=== PATIENT | male | born 1970 | race Caucasian/White ===

== ENCOUNTER 2017-01-06 12:16 | Emergency (ER) | payer OTHER ==
[~2017-01-06] VITALS: Ht 188 cm; Wt 120.2 kg
[~2017-01-06 12:16] MED LIST: AUGMENTIN 875-1 EACH PO; PERCOCET 5-3251 EACH PO
--- NOTE | 2017-01-06 12:53 | ED PSYCHIATRIC COMPLAINT ---
History of Present Illness General Chief Complaint: Psychiatric Related Complaint Stated Complaint: PT REQUESTING PSY EVAL Source: patient Exam Limitations: no limitations Vital Signs & Intake/Output Vital Signs & Intake/Output Vital Signs Date Time Temp Pulse Resp B/P B/P Pulse O2 O2 Flow FiO2 Mean Ox Delivery Rate 01/06 1940 97.1 84 18 134/85 98 Room Air 01/06 1441 98.0 88 18 138/88 97 Room Air 01/06 1229 97.9 82 15 149/99 100 Room Air Allergies Coded Allergies: No Known Allergies (01/06/17) Reconcile Medications Atorvastatin Calcium 10 MG TABLET 1 TAB PO QPM CHOLESTEROL (Reported) Escitalopram Oxalate 10 MG TABLET 1 TAB PO DAILY MENTAL HEALTH (Reported) Triage Note: PT TO ED FOR INCREASED WHIPPET USAGE AND QUESTIONABLE DELUSIONS. PT TO ED WITH BROTHER, PT ENDORESES USING WHIPPETS "APPROXIMATELY 100-200 TIMES A DAY". Triage Nurses Notes Reviewed? yes Onset: Gradual Duration: worse persistent since (2 WEEKS) Timing: recent history Severity: severe HPI: Patient is a 46-year-old male with history of hypertension presenting to the emergency Department chief complaint of "I abuse whippets". Patient sees his drug abuse counselor 1-2 times a week and they thought it would be a good idea that he come in and get evaluated here in the emergency department. Patient denying any suicidal or homicidal ideation. Denies any anxiety or depression. Patient reports that he's been abusing whippets approximately 10 times a day for the past week or 2. No nausea or vomiting. He feels anxious when he does not use IT. (NAIN HICKMAN) Past History Travel History Traveled to [place] past 21 day No Medical History Any Pertinent Medical History? 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 No (NAIN HICKMAN) Review of Systems Review of Systems Constitutional: Reports: no symptoms. Comments Review of systems: See HPI, All other systems negative. Constitutional, no chills fever or weight loss HEENT: No visual changes no sore throat no congestion Cardiovascular: No chest pain ,palpitation , orthopnea or ankle swelling Skin, no jaundice no rashes Respiratory: No dyspnea cough sputum or hemoptysis GI: No nausea no vomiting : No dysuria No hematuria Muscle skeletal: no back pain, no neck pain, Neurologic: No numbness no confusion NO SOSA Psych: No INCREASED stress anxiety or depression,. Heme/endocrine: No bruising no bleeding no polyuria or polydipsia Immunology: No splenectomy or history of AIDS (NAIN HICKMAN) Physical Exam Physical Exam General Appearance: well developed/nourished, no apparent distress, alert, awake , comfortable Neurological/Psychiatric: oriented x 3 Comments: Well-developed well-nourished person in no acute distress HEENT: Pupils equally round and reactive to light and accommodation. Nose is atraumatic. Neck: Normal inspection Back: Nontender Cardiovascular: Regular rate and rhythms no murmurs rubs or gallops, normal JVP Respiratory: Chest nontender. No respiratory distress.breath sounds clear to auscultation bilaterally Extremity: No edema Neuro: Alert oriented x3, motor sensory normal Skin: No appreciable rash on exposed skin, skin is warm and dry. Psych: Mood and affect is normal, memory and judgment is normal. SAD PERSONS Done? patient not suicidal (NAIN HICKMAN) Progress Differential Diagnosis: POLYSUBSTANCE ABUSE, ADDICTIVE PERSONALITY, GENERALIZED ANXIETY DISORDER Plan of Care: Orders Procedure Date/time Status URINE DRUG SCREEN FOR ER ONLY 01/06 1253 Complete URINALYSIS 01/06 1253 Complete TSH REFLEX 01/06 1253 Complete COMPREHENSIVE METABOLIC PANEL 01/06 1253 Complete CBC WITHOUT DIFFERENTIAL 01/06 1253 Complete ED CRISIS PSYCH CONSULT 01/06 1253 Active Laboratory Tests 01/06/17 1424: Urine Opiates Screen < 100.00, Methadone Screen 43, Barbiturate Screen < 60, Ur Phencyclidine Scrn < 6.00, Amphetamines Screen < 100, U Benzodiazepines Scrn > 800.0 H, Urine Cocaine Screen 73, Urine Cannabis Screen 31.90, Urine Color YEL, Urine Clarity CLEAR, Urine pH 6.0, Ur Specific [place] 1.020, Urine Protein 30 H, Urine Ketones NEG, Urine Nitrite NEG, Urine Bilirubin NEG, Urine Urobilinogen 0.2, Ur Leukocyte Esterase NEG, Ur Microscopic SEDIMENT EXAMINED, Urine RBC RARE , Ur Epithelial Cells RARE, Urine Hemoglobin NEG, Urine Glucose NEG 01/06/17 1414: Anion Gap 11, Estimated GFR > 60, BUN/Creatinine Ratio 14.5, Glucose 105 H, Calcium 10.1, Total Bilirubin 0.9, AST 17, ALT 57, Alkaline Phosphatase 70, Total Protein 7.4, Albumin 4.8, Globulin 2.6, Albumin/Globulin Ratio 1.8, TSH & T3 &Free T4 Intrp 0.579, CBC w Diff NO MAN DIFF REQ, RBC 4.87, MCV 88.7, MCH 30.9, RDW 16.2 H, MPV 8.3, Gran % 66.9, Lymphocytes % 26.6, Monocytes % 6.0, Eosinophils % 0.4, Basophils % 0.1, Absolute Granulocytes 3.5, Absolute Lymphocytes 1.4, Absolute Monocytes 0.3, Absolute Eosinophils 0, Absolute Basophils 0, PUBS MCHC 34.8 Comments: Patient cleared by crisis. He will follow up with IOP. Patient nontoxic. (NAIN HICKMAN) Departure Departure Time of Disposition: 1713 Disposition: HOME OR SELF CARE Condition: Stable Clinical Impression Primary Impression: Drug abuse Referrals: UMAIR WILSON,SHAKIRA Vela (PCP/Family) Additional Instructions: Follow-up with recommendations made by crisis. Return for worsening symptoms or concerns. Departure Forms: Customer Survey General Discharge Information (NAIN HICKMAN) PA/[employer] Co-Sign Statement Statement: ED Attending supervision documentation- [] I saw and evaluated the patient. I have also reviewed all the pertinent lab results and diagnostic results. I agree with the findings and the plan of care as documented in the PA's/[employer]'s documentation. [X] I have reviewed the ED Record and agree with the PA's/[employer]'s documentation. [] Additions or exceptions (if any) to the PAs/[employer]'s note and plan are summarized below: [] (MARVIN WILSON,GLORIA Davison)
--- NOTE | 2017-01-06 14:12 | ED PSY CRISIS COLLATERAL NOTE ---
See Addendum Collateral Note Collateral Note Family/Inform/Cesia Contacts: 1. 01/06/17 1300: and brother present in the hospital, and interviewed in the family room. , Brandy, (H), (C) Brother, Ollie, (C) The patient was brought to his therapist, Blank Melton, today by his and his brother, who snet them to the ED for evaluation of his drug abuse which is interferring with his family life and livelihood. The patient also has altered mentation when he is under the influence of the drug, nitrous oxide. The patient has been abusing 'Whippets,' or nitrous oxide cartridges by inhalation, estimated to be 100-200 daily. This began in the summer of 2014, at about the time he cut his drinking down from a six pack with 3 shots of liquor nightly to 1-2 drinks socially. He had been drinking heavily since his parents were 5 years ago. As he cut down on alcohol use, he began to increase his use of the nitrous oxide. Brandy found out about the nitrous abuse on 2014. Ollie reports that the patient has been psychotic, saying while under the influence of the drug, that using it is his purpose in life, and he cannot understand why everyone is not prescribed nitrous oxide. He has been neglecting work by going to the smoke shop to buy the cartidges, and sitting in his car inhaling them. He loses his sense of time; 20 minutes to him is actually 3-4 hours. His nutrition has deteriorated, and his PCP, Dr. Alex Bone, has precribed vitamin B-12 injections. 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 After the divorce, the mother left, and the father, now 65 and with some health issues, stopped working at the store, too. 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 The patient has stated that he feels his mother walked out on him, too. The patient lives at home with his , and their 3 children, ages 16,13, and 10. The children are very active, and put demands on his time, as well. Brandy works, as well. He has been offered an IOP in the past, but refused, citing time constraints. He has never been diagnosed with a psychiatric disorder; has never been hospitalized for psycahiatric reasons. He has never verbalized suicidal or homicidal ideation, and has never had a suicde attempt. Per Brandy, the patient has never been good at prioritizing or organizing his schedule. It is far worse now, and recently, they doscoverd that a week's worth of bank deposits were not made. She is considering leaving him with the children. The patient's father is now watching over the store while the patient is in the hospital. Support was offered to the family, and we briefly discussed 12-step programs, such as Al-Anon or Brian-Anon, and also suggested calling the patient's therapist for suggestions. Family history, per Ollie: Father has "bipolar traits." Paternal grandmother was diagnosed with bipolar disorder, and had been on many medications, including lithium. No known history on his mother's side of the family. Pharmacy is [facility] in [place], [phone]. 2. The patient has been in therapy 2X/week with Blank Melton, [facility], , since last April,. Called 01/06/17 @ 0362 and LVM. Expect a return call to get background and discuss possible plans. 3. Dr. Alex Bone, PCP, . Called 01/06/17 @ 8711 and LVM. Expect a return call to get background, medications and discuss possible plans.
[2017-01-06 14:28] LABS: ABSOLUTE BASOPHIL COUNT 0 /CUMM (0.0-0.2); ABSOLUTE EOSINOPHIL COUNT 0 /CUMM (0.0-0.7); ABSOLUTE GRANULOCYTE CT 3.5 /CUMM (1.4-6.5); ABSOLUTE LYMPH COUNT 1.4 /CUMM (1.2-3.4); ABSOLUTE MONOCYTE COUNT 0.3 /CUMM (0.10-0.60); BASOPHIL % 0.1 % (0.0-2.0); EOSINOPHIL % 0.4 % (0-5); GRANULOCYTE % 66.9 % (42.2-75.2); HEMATOCRIT 43.2 % (42-52); MEAN CORPUSCULAR HGB 30.9 PG (27.0-31.0); MEAN CORPUSCULAR HGB CONC 34.8 G/DL (33.0-37.0); MEAN CORPUSCULAR VOLUME 88.7 FL (80.0-94.0); MEAN PLATELET VOLUME 8.3 FL (7.4-10.4); PLATELET COUNT 218 /CUMM (130-400); RBC DISTRIBUTION WIDTH 16.2 % (11.5-14.5); RED BLOOD CELL CT 4.87 /CUMM (4.70-6.10); WHITE BLOOD CELL COUNT 5.3 /CUMM (4.8-10.8)
[2017-01-06] MEDS ORDERED: ATORVASTATIN CA10 M1 PO (15:06)
[2017-01-06] MEDS ORDERED: ESCITALOPRAM OX10 MG PO (15:07)
--- NOTE | 2017-01-06 17:42 | ED PSYCH CRISIS CONSULTATION ---
Crisis Consult Basic Assessment Date of Consult: 01/06/17 Responsible Person/Accompanied By: with and brother Insurance Authorization: Insurance #1: Insurance name: [employer] Phone number: Policy number: [id number] Group number: [id number] Authorization number: ED Provider: Patient's ED Provider: NAIN HICKMAN Primary Care Physician: Patient's PCP: SHAKIRA BLOCK MD PCP's Current Psychiatrist: Dr. James in [place] Chief Complaint: Psychiatric Related Complaint Patient's Quote: "I abuse nitrous oxide" Present Illness: Pt is a 47 year old male arriving to ER with his and brother. He reports he sees a substance abuse counselor in [facility] and she recommended an evaluation at the ER, "she thought I needed something more then to see her once a week". Pt reports a short history with opiates, a few years ago, and recently will "picker tender a bag of xanax, and take them sporadically when I cant sleep, like half a bar." he took xanax for the past 2 nights. Pt reports "I abuse nitrous oxide", regularly and daily for over almost 2 years. He had stopped in , and his brother took out the machine in their family owned store, but now he buys it at other stores. He reports using it on the way to work, and during the day, he reports it calms me down and I can focus, he states he uses in general to manage stress, and anxiety about work and family life. is cocnerned that he will continue to use instead of facing adn dealing with the challenges of his stressful life. Pt wants help, and is willing to get into treatment. he had thought of si once 2 years ago, and sees Dr. James who prescibes lexapro 10mg, for "anxiety". He has not had any other psychiatric history, zero hospititalizations and aside from his outpatient therapist has not had any substance abuse treatment. Denies current si/hi/ah/vh. Patient's Address: [address] [place] [address] Other Who Do You Live With? Family Family/Informants Interviewed: see collateral note Allergies - Coded Allergies: No Known Allergies (01/06/17) Current Medications - Scheduled Medications Atorvastatin Calcium 10 MG TABLET 1 TAB PO QPM CHOLESTEROL #30 (Reported) Entered as Reported by ELSA PRASAD on 01/06/17 1506 Escitalopram Oxalate 10 MG TABLET 1 TAB PO DAILY MENTAL HEALTH #30 (Reported) Entered as Reported by ELSA PRASAD on 01/06/17 1507 Laboratory Results: Laboratory Tests 01/06/17 1424: Urine Opiates Screen < 100.00, Methadone Screen 43, Barbiturate Screen < 60, Ur Phencyclidine Scrn < 6.00, Amphetamines Screen < 100, U Benzodiazepines Scrn > 800.0 H, Urine Cocaine Screen 73, Urine Cannabis Screen 31.90, Urine Color YEL, Urine Clarity CLEAR, Urine pH 6.0, Ur Specific [place] 1.020, Urine Protein 30 H, Urine Ketones NEG, Urine Nitrite NEG, Urine Bilirubin NEG, Urine Urobilinogen 0.2, Ur Leukocyte Esterase NEG, Ur Microscopic SEDIMENT EXAMINED, Urine RBC RARE , Ur Epithelial Cells RARE, Urine Hemoglobin NEG, Urine Glucose NEG 01/06/17 1414: Anion Gap 11, Estimated GFR > 60, BUN/Creatinine Ratio 14.5, Glucose 105 H, Calcium 10.1, Total Bilirubin 0.9, AST 17, ALT 57, Alkaline Phosphatase 70, Total Protein 7.4, Albumin 4.8, Globulin 2.6, Albumin/Globulin Ratio 1.8, TSH & T3 &Free T4 Intrp 0.579, CBC w Diff NO MAN DIFF REQ, RBC 4.87, MCV 88.7, MCH 30.9, RDW 16.2 H, MPV 8.3, Gran % 66.9, Lymphocytes % 26.6, Monocytes % 6.0, Eosinophils % 0.4, Basophils % 0.1, Absolute Granulocytes 3.5, Absolute Lymphocytes 1.4, Absolute Monocytes 0.3, Absolute Eosinophils 0, Absolute Basophils 0, PUBS MCHC 34.8 Past History Past Medical History Neurological: NONE EENT: NONE Cardiovascular: HIGH CHOLESTEROL Respiratory: NONE Gastrointestinal: NONE Hepatic: NONE Renal: NONE Musculoskeletal: NONE Psychiatric: NONE Endocrine: NONE 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 Past Surgical History Surgical History: non-contributory Psychosocial History Strengths/Capabilities: supportive family, motivated for treatment Psychiatric Treatment History Psych Treatment Psychiatric Treatment Yes Inpatient Treatment No Outpatient Treatment Yes Location of Treatment [place] Reason for Treatment anxiety Dates of Treatment currently Response to Treatment unknown Diagnosis by History: unknown Substance Use/Abuse History Drug Use/Abuse 1 Substances Used/Abused Yes Substance Used/Abused Inhalants First Use 1 1/2 year ago Last Used today How much used/taken varies How often daily/a few times For how long almost 2 years Route of use inhales nitrous oxide Drug Use/Abuse 2 Substances Used/Abused Yes Substance Used/Abused Benzodiazepines First Use a few months ago Last Used last night How much used/taken varies How often varies For how long unknown Route of use oral Substance Abuse Treatment Substance Abuse Treatment Past Substance Abuse [place] Yes Inpatient Treatment No Outpatient Treatment No Location of Treatment [place] Reason for Treatment abusing "whippets" Dates of Treatment currently Response to Treatment unknown Current Mental Status Mental Status Orientation: Person, Place, Situation Affect: Flat, Variable Speech: Normal, WNL Neuro-vegetative: Concentration Poor, Energy Increased, Sleep Disturbance Appearance Appearance- Dress/Hygiene: WNL Behaviors Thought Process: Disorganized Thought Content: WNL Memory: WNL Insight: Fair SI/HI Risk Assessment Past Suicidal Ideation/Attempts Yes Current Suicidal Ideation/Att No Past Homicidal Ideation/Att: No Current Homicidal Ideation/Attempts No Degree of Intent: None Gravely Disabled: Poor Impulse Control Risk Factors: high anxiety/distress, substance abuse, poor impulse control, male , limited support Lethality Ratin PTSD Checklist PTSD Done? patient declined ED Management Sitter: Yes Restraints: No DSM5/PS Stressors/Medical Prob Diagnosis' (DSM 5, Stressors, Medical): Unspecified Inhalant-Related D/O F18.99 Unspecifed anxiety F41.9 Current GAF: 38 Departure Disposition Psych Medical Clearance Date: 01/06/17 Medically Cleared at: 1630 Time Started: 1630 Time Ended: 1740 Psychiatrist Consulted: Malvin Waters MD Date Disposition Established: 01/06/17 Time Disposition Established: 1740 Plan for Disposition - Modality: [facility] Facility: [facility] Follow-up Appt Date: 01/07/17 Follow-Up Appt Time: 09 Contact: [facility] Telephone: [phone] Rationale for Disposition: Consulted with Dr. waters, pt to be referred to IOP for dual program. Referrals UMAIR WILSON,SHAKIRA Vela (PCP/Family)
[2017-01-06 19:40] VITALS: BP 134/85
== END 2017-01-06 19:42 ==
LOC: ERH 12:16
PROVIDERS: Physician Assistant
DX: F16.10 Hallucinogen abuse, uncomplicated (principal)
CPT/HCPCS: 80307; 81001; G0463

== ENCOUNTER 2018-05-10 19:10 | Emergency (ER) | payer OTHER ==
[~2018-05-10 19:10] MED LIST changes: +ATORVASTATIN CA10 M1 PO; +ESCITALOPRAM OX10 MG PO
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
[2018-05-10 22:22] LABS: ABSOLUTE BASOPHIL COUNT 0 /CUMM (0.0-0.2); ABSOLUTE EOSINOPHIL COUNT 0.1 /CUMM (0.0-0.7); ABSOLUTE GRANULOCYTE CT 5.6 /CUMM (1.4-6.5); ABSOLUTE LYMPH COUNT 2.7 /CUMM (1.2-3.4); ABSOLUTE MONOCYTE COUNT 0.4 /CUMM (0.10-0.60); BASOPHIL % 0.3 % (0.0-2.0); EOSINOPHIL % 1.3 % (0-5); GRANULOCYTE % 63.4 % (42.2-75.2); HEMATOCRIT 45.2 % (42-52); MEAN CORPUSCULAR HGB 30.8 PG (27.0-31.0); MEAN CORPUSCULAR HGB CONC 34.4 G/DL (33.0-37.0); MEAN CORPUSCULAR VOLUME 89.3 FL (80.0-94.0); MEAN PLATELET VOLUME 8.7 FL (7.4-10.4); PLATELET COUNT 202 /CUMM (130-400); RED BLOOD CELL CT 5.06 /CUMM (4.70-6.10); WHITE BLOOD CELL COUNT 8.8 /CUMM (4.8-10.8)
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
[2018-05-12 07:13] VITALS: BP 116/69
== END 2018-05-12 09:45 ==
LOC: ERH 19:10
PROVIDERS: Pediatrics
DX: F32.9 Major depressive disorder, single episode, unspecified (principal); F10.10 Alcohol abuse, uncomplicated; F13.10 Sedative, hypnotic or anxiolytic abuse, uncomplicated; R45.851 Suicidal ideations
CPT/HCPCS: 80307; G0463; G0480